=== PATIENT | female | born 1940 | race Caucasian/White ===

== ENCOUNTER 2018-12-05 17:07 | Inpatient (IN) | payer OTHER, MEDICAID ==
[~2018-12-05] VITALS: Ht 165.1 cm; Wt 54.0 kg
--- NOTE | 2018-12-05 17:14 | NUR ---
Arrived via S ambulance S/P fall S/T weakness. C/O right thorasic pain radiating anteriorly along ribs. Patient to ER bed 3 to gown for evaluation. Side rails up. Report given to Robert RICHARD.
[2018-12-05 17:15] VITALS: BP_SYST 159
--- NOTE | 2018-12-05 17:30 | NUR ---
Patient is awake, alert and oriented x4. Patient fell in her bedroom and hit her back on the trash can. Patient is complaining of pain 10/10 across her back.
[2018-12-05] MEDS ORDERED: NACL 0.9% 1,000 ML IV ONE (18:07)
--- NOTE | 2018-12-05 18:10 | NUR ---
ER Dr. Avilez at bedside examining patient.
[2018-12-05] MEDS ORDERED: KETOROLAC TROMETHAMINE 30 MG VIAL IVP ONE (18:15)
[2018-12-05 18:31] LABS: BASOPHILS # (AUTO) 0.1 K/uL (0.0-0.2); BASOPHILS % (AUTO) 1.1 % (0.0-2.0); EOSINOPHILS # (AUTO) 0.4 K/uL (0.0-0.4); EOSINOPHILS % (AUTO) 8.2 % (0.0-4.0); HEMOGLOBIN 14.4 g/dL (12.0-16.0); LYMPHOCYTES # (AUTO) 1.1 K/uL (1.0-5.5); LYMPHOCYTES % (AUTO) 20.6 % (20.5-51.5); MEAN CORPUSCULAR HEMOGLOBIN 31 pg (27-31); MEAN CORPUSCULAR HGB CONC 33 % (32-36); MEAN CORPUSCULAR VOLUME 94 fL (79.0-98.0); MONOCYTES # (AUTO) 0.3 K/uL (0.0-1.0); MONOCYTES % (AUTO) 5.5 % (1.7-9.3); NEUTROPHILS # (AUTO) 3.5 K/uL (1.8-7.7); NEUTROPHILS % (AUTO) 64.6 % (40.0-70.0); PLATELET COUNT (AUTO) 144 K/uL (130-430); RED BLOOD CELL COUNT(AUTO) 4.68 MIL/uL (4.2-6.2); RED CELL DISTRIBUTION WIDTH 13.4 % (9.0-15.0); WHITE BLOOD COUNT (AUTO) 5.4 K/uL (4.8-10.8)
[2018-12-05 18:44] LABS: ANION GAP 8 (5-15); CALCIUM 9.8 mg/dL (8.4-11.0); CHLORIDE 101 mmol/L (98-107); CREATININE 0.73 mg/dL (0.55-1.30); GLUCOSE 79 mg/dL (70-99); POTASSIUM 4.2 mmol/L (3.5-5.1); SODIUM SERUM 135 mmol/L (136-145); UREA NITROGEN, BLOOD 20 mg/dL (8-21)
[2018-12-05 18:48] LABS: ALANINE AMINOTRANSFERASE 162 U/L (12-78); ALBUMIN 3.7 g/dL (3.4-4.8); ASPARTATE AMINOTRANSFERASE 144 U/L (10-37); TOTAL BILIRUBIN 0.5 mg/dL (0.0-1.0)
--- NOTE | 2018-12-05 19:00 | NUR ---
Dr. Avilez made aware of patient pain level.
--- NOTE | 2018-12-05 19:05 | NUR ---
Report given to HILARY Hardin for continuation of care.
--- NOTE | 2018-12-05 19:13 | NUR ---
Medication was given, pt tolerated well. No adverse reaction, will continue to monitor.
[2018-12-05] MEDS ORDERED: MORPHINE 4 MG/ML INJ. SYRINGE IVP ONE (19:15)
--- NOTE | 2018-12-05 20:22 | NUR ---
daughter of patient, Xiomy, called and was updated on patient's status. Informed patient that daughter called to check on her and will pick her up when she is ready to go home.
--- NOTE | 2018-12-05 21:47 | NUR ---
ER Dr. Jones at bedside examining patient.
--- NOTE | 2018-12-05 22:38 | NUR ---
Pt resting comfortably in hospital bed. No acute distress. Will continue to monitor.
--- NOTE | 2018-12-05 23:24 | NUR ---
Pt resting comfortably in hospital bed. No acute distres, will continue to monitor.
[2018-12-05] MEDS ORDERED: IBUP-1969 PO (23:45)
[2018-12-05] MEDS ORDERED: CITA10TA9 PO (23:46)
[2018-12-05] MEDS ORDERED: VEN2 PO (23:46)
[2018-12-05] MEDS ORDERED: TRAM50TA2 PO (23:47)
[2018-12-05] MEDS ORDERED: DILT120C89 PO (23:49)
[2018-12-05] MEDS ORDERED: LORA2TAB PO (23:51)
[2018-12-05] MEDS ORDERED: MONT10TA25 PO (23:53)
[2018-12-06] VITALS (7 sets, daily range): BP systolic 127–163
--- NOTE | 2018-12-06 00:13 | NUR ---
Patient will be admitted to care of Dr. Zelaya. Admitted to Med Surg unit. Will go to room 102 A. Belongings list completed. Summary report printed. Report will be given at bedside.
--- NOTE | 2018-12-06 00:14 | NUR ---
Transfer to [facility]. IV present no sign or symptom of infiltration.
[2018-12-06] MEDS ORDERED: ASPI-858 PO (00:17)
--- NOTE | 2018-12-06 00:41 | NUR ---
ADMISSION NOTE Received patient from ER via gurney. Patient admitted with diagnosis of Fall/Back Pain. Patient is awake, alert, oriented X 3. Patient oriented to hospital room, call light, toileting, pain management and safety-teach back done. Patient informed that HILARY Rueda will be primary nurse and that their room number is 102A. Personal belongings checked and Belongings List documented. Call light within reach.
--- NOTE | 2018-12-06 01:10 | NUR ---
Initial RN notes Received pt from ED, pt AAOx3, no acute distress noted, s/p fall/back pain. IVF infusing L. FA 22G good blood return. Scar on L. buttocks, no open wound noted. Pt c/o severe sharp back pain. Pt repositioned, incontinent of urine in adult diaper. 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 Call light within reach. Fall safety measures in place. Bed low, locked, bed alarm on. Will medicate for pain as needed. To monitor.
[2018-12-06] MEDS: MORPHINE 4 MG/ML INJ. SYRINGE IVP PRN ×4 (02:02→23:40)
--- NOTE | 2018-12-06 02:10 | NUR ---
Pain mgmt Pt AAOx3 c/o sharp pain 10/10 whole back, medicated with Morphine 2mg IVP as needed. Explained to pt possible side effects of med, pt verb understanding. Photo of wound taken L. buttock 100% light pink 2.5cm x 2cm, no open wound, drainage, redness noted. Call light within reach. To monitor.
--- NOTE | 2018-12-06 04:32 | NUR ---
Rounds Pt asleep, no s/s distress or discomfort noted. Call light within reach. Fall precaution in place. To monitor.
--- NOTE | 2018-12-06 04:45 | NUR ---
Urine specimen collected and sent to lab.
[2018-12-06] MEDS: ACETAMINOPHEN 650 MG/20.3 ML UDC PO PRN (04:55)
[2018-12-06 04:58] LABS: BILIRUBIN,URINE NEGATIVE (NEGATIVE); BLOOD, URINE NEGATIVE (NEGATIVE); CLARITY/URINE CLEAR (CLEAR); COLOR,URINE YELLOW (YELLOW); GLUCOSE,URINE NEGATIVE (NEGATIVE); KETONES,URINE TRACE (NEGATIVE); LEUKOCYTE ESTERASE ,URINE 1+ (NEGATIVE); NITRITE, URINE NEGATIVE (NEGATIVE); PH,URINE 5.5 (5.0-8.0); PROTEIN URINE NEGATIVE (NEGATIVE); UROBILINOGEN,URINE 0.2 (0.2-1.0)
[2018-12-06 05:04] LABS: BACTERIA,URINE FEW /HPF (None Seen); RBC,URINE 0-3 /HPF (0-3)
[2018-12-06 05:05] LABS: MUCUS,URINE 1+ /LPF (None Seen)
--- NOTE | 2018-12-06 06:25 | NUR ---
Closing notes Pt awake, alert, no acute distress noted. Pt medicated with Tylenol 650mg for c/o migraine headache. IV saline lock L. FA 22G clear, patent. Call light within reach. Fall precaution in place. Bed low, locked, bed alarm on. To endorse to AM nurse.
--- NOTE | 2018-12-06 07:18 | NUR ---
Opening Note patient resting in bed, awake and alert, breathing unlabored and symmetrical, educated her on use of call light for assistance, verbalized understanding, call light and bedside table left within reach, fall precautions in place, will continue to monitor
--- NOTE | 2018-12-06 07:42 | NUR ---
Nutrition Update Renzo Scale 15 noted. Pt admitted for fall, back pain. Diet: regular BMI: 19.8 kg/m2 RD to follow per nutrition care standards
--- NOTE | 2018-12-06 07:50 | NUR ---
Pain meds given at this time per pain scale protocol, educated patient regarding med, vebalized understanding, IV site remains patent, she is eating breakfast, educated patient on use of call light for assistance, verbalized understanding, call light and bedside table left within reach, will continue to monitor
--- NOTE | 2018-12-06 08:53 | NUR ---
Dr. Zelaya at bedside at this time examining patient
[2018-12-06] MEDS ORDERED: ASPIRIN 325 MG TABLET PO SCH (09:00)
[2018-12-06] MEDS ORDERED: traMADol HCL HCL 50 MG TABLET (ULTRAM) PO PRN (09:00)
[2018-12-06] MEDS: ENOXAPARIN SODIUM 30 MG/0.3 ML SYRINGE SUBCUT SCH (09:16)
[2018-12-06] MEDS: ALBUTEROL SULFATE 2 MG TABLET PO SCH ×2 (09:17→20:31)
[2018-12-06] MEDS: CITALOPRAM HYDROBROMIDE 20 MG TABLET PO SCH (09:18)
[2018-12-06] MEDS: MONTELUKAST 10 MG TABLET PO SCH (09:20)
[2018-12-06] MEDS: DILTIAZEM HCL 120 MG CAP.SR.24H PO SCH (09:20)
--- NOTE | 2018-12-06 09:24 | NUR ---
Medication eduacated patient regarding meds, verbalized understanding, tolerated well, states pain is tolerable at this time, educated patient on NPO status for abdomen ultrasound, verbalized understanding, educated patient on use of call light for assistance, verbalized understanding, call light and bedside table left within reach, will continue to monitor
--- NOTE | 2018-12-06 12:20 | NUR ---
Patient up with PT at this time, walking around unit with walker, tolerating well, will continue to monitor
--- NOTE | 2018-12-06 14:26 | NUR ---
Pain meds given at this time per pain scale protocol, educated patient regarding med, verbalized understanding, tolerated well, IV site patent, no other needs at this time, educated patient on use of call light for assistance, verbalized understanding, call light and bedside table left within reach, will continue to monitor
--- NOTE | 2018-12-06 16:00 | NUR ---
Ultrasound at bedside at this time, will continue to monitor
--- NOTE | 2018-12-06 18:55 | NUR ---
Closing Note patient resting in bed, she was assisted to bedside commode earlier, tolerated well, denies pain at this time, breathing unlabored and symmetrical, safety precautions in place, bed alarm on, bedside table and call light within reach, will endorse to warehouse worker 2nd shift nurse
--- NOTE | 2018-12-06 19:15 | NUR ---
Opening notes Received report. Patient is asleep. No signs of distress noted. Breathing is even and unlabored. IV patent and intact, no signs of infiltration noted. No needs at this time. Call light with the patient. Safety precautions in place.
--- NOTE | 2018-12-06 20:31 | NUR ---
Medications Scheduled medication give. Educated the action and side effects of medication. Patient verbalized understanding and tolerated well. No signs of allergic reaction noted. No needs at this time. Call light with the patient. Safety precautions in place.
--- NOTE | 2018-12-06 23:45 | NUR ---
Pain Patient c/o pain to back 10/10. Educated the action and side effects of medication. Patient verbalized understanding and tolerated well. No signs of allergic reaction. No other needs at this time. Call light with the patient. Safety precautions in place.
[2018-12-07 00:49] VITALS: BP_SYST 116
--- NOTE | 2018-12-07 01:30 | NUR ---
Bedside commode Patient used bedside commode. Hygiene care performed. Patient resting comfortably in bed. No other needs at this time. Safety precautions in place.
--- NOTE | 2018-12-07 04:00 | NUR ---
Sleeping No signs of distress noted. Breathing is even and unlabored. Safety precautions in place.
[2018-12-07] MEDS: ACETAMINOPHEN 650 MG/20.3 ML UDC PO PRN ×2 (06:13→12:58)
--- NOTE | 2018-12-07 06:15 | NUR ---
Closing notes Patient complains of a headache and requests Tylenol. Tylenol given. Educated the patient the action and side effects of medication. Patient verbalized understanding and tolerated well. All needs met throughout the shift. Call light with the patient. Safety precautions in place. Will endorse care to day shift RN.
[2018-12-07 07:47] VITALS: BP_SYST 132
--- NOTE | 2018-12-07 08:00 | NUR ---
initial notes rec patient awake alert with hob elevated. ivl on the l forearm intact.resp easy and unlabored. no osb noted. bed to the lowest position and side rails up and locked. call light within reached and knows when to call for assistance.
--- NOTE | 2018-12-07 10:00 | NUR ---
rounds up with pt and walking on the halllway and [facility] well with a walker. seen by dr orona and will d/c patient. daughter was called and will be here in the afternoon to sisal picker patient.
[2018-12-07] MEDS: CITALOPRAM HYDROBROMIDE 20 MG TABLET PO SCH (10:03)
[2018-12-07] MEDS: ALBUTEROL SULFATE 2 MG TABLET PO SCH (10:03)
[2018-12-07] MEDS: MONTELUKAST 10 MG TABLET PO SCH (10:04)
[2018-12-07] MEDS: DILTIAZEM HCL 120 MG CAP.SR.24H PO SCH (10:05)
[2018-12-07] MEDS: ENOXAPARIN SODIUM 30 MG/0.3 ML SYRINGE SUBCUT SCH (10:06)
--- NOTE | 2018-12-07 12:00 | NUR ---
rounds eating lunch at bedside and [employer] [facility]. assisted to the commode sometimes to the br and [facility] [facility]. no sob noted.
[2018-12-07 12:39] LABS: HEPATITIS A AB, IgM Negative (Negative); HEPATITIS B CORE AB, IgM Negative (Negative); HEPATITIS B SURFACE AG Negative (Negative)
[2018-12-07 12:55] VITALS: BP_SYST 147
--- NOTE | 2018-12-07 14:00 | NUR ---
rounds sitting at the edge of the bed waiting for her daughter. call light within reached.
[2018-12-07 15:34] VITALS: BP_SYST 147
--- NOTE | 2018-12-07 16:40 | NUR ---
closing notes daughter came and instruction given to her for the patient. stated will call pmd dr tapan paredes for her appt. discussed also with daughter re medication reconciliation. pt is stable. needs attended. was wheeled down and no sob noted.
--- NOTE | 2018-12-20 12:03 | NUR ---
Discharge Follow Up Phone Call ACQUISITIONS ANALYST phoned the number listed for patient, , on 12/15/18, 12/19/18, and 12/20/18 but there was no answer, no voicemail. ACQUISITIONS ANALYST phoned the patient's daughter, Xiomy, , on 12/15/18 and 12/19/18 and left voicemail messages with reminder to make a follow up appointment, offer of assistance, and Social Service contact information. No further calls will be made.
== END 2018-12-07 16:40 | disposition home or self-care (01) | DRG 552 ==
LOC: SED 17:07 → SMU 12-06 00:04
PROVIDERS: ADMIT Internal Medicine Hospice and Palliative Medicine; ATTEND Internal Medicine Hospice and Palliative Medicine
DX: M54.9 Dorsalgia, unspecified (principal); S22.068A Other fracture of T7-T8 thoracic vertebra, initial encounter for closed fracture; F41.9 Anxiety disorder, unspecified; J44.9 Chronic obstructive pulmonary disease, unspecified; I10 Essential (primary) hypertension; W06.XXXA Fall from bed, initial encounter; Y93.89 Activity, other specified; Y92.89 Other specified places as the place of occurrence of the external cause; Y99.8 Other external cause status; Z85.118 Personal history of other malignant neoplasm of bronchus and lung; Z87.11 Personal history of peptic ulcer disease; Z87.891 Personal history of nicotine dependence; Z95.0 Presence of cardiac pacemaker; Z79.899 Other long term (current) drug therapy; Z79.82 Long term (current) use of aspirin
CPT/HCPCS: 36415; 72080-TC; 72128; 72131; 76700-TC; 80053; 80074; 81000-TC; 85025; 87086; 93005; 96361; 96374; 96375; 97116-GP; 97530-GP; 99285; J1650; J1885; J2270; J7030

== ENCOUNTER 2019-05-31 14:44 | Outpatient (CLI) | payer OTHER ==
[~2019-05-31 14:44] MED LIST: ASPI-858 PO; CITA10TA9 PO; DILT120C89 PO; IBUP-1969 PO; LORA2TAB PO; MONT10TA25 PO; TRAM50TA2 PO; VEN2 PO
[2019-05-31 16:38] LABS: CHOLESTEROL 128 mg/dL (<200); HDL CHOLESTEROL 47 mg/dL (>55); LDL CHOLESTEROL 63 mg/dL (<100); TRIGLYCERIDES 78 mg/dL (30-150)
== END 2019-05-31 20:20 | disposition home or self-care (01) ==
LOC: SLB 14:44
PROVIDERS: ATTEND Psychiatry & Neurology Psychiatry
DX: Z00.00 Encounter for general adult medical examination without abnormal findings (principal)
CPT/HCPCS: 36415; 80061; 83036